=== PATIENT | male | born 1950 | race Caucasian/White ===

== ENCOUNTER 2021-12-31 13:02 | Observation (INO) | payer MEDICARE ==
[~2021-12-31] VITALS: Ht 165.1 cm; Wt 65.0 kg
[2021-12-31 16:51] LABS: CLARITY,URINE SLIGHTLY CLOUDY (Clear); COLOR,URINE YELLOW (Yellow); GLUCOSE, URINE NEGATIVE (Neg); KETONES,URINE 15 mg/dl (Neg); LEUKOCYTE ESTERASE ,URINE NEGATIVE (Neg); NITRITES, URINE NEGATIVE (Neg); OCCULT BLOOD,URINE NEGATIVE (Neg); PROTEIN,URINE NEGATIVE (Neg); UROBILINOGEN,URINE 0.2 E.U/dL (0.2-1.0)
[2021-12-31 16:56] LABS: UA COLLECTION TYPE NON-SPECIFIED
[2021-12-31 17:04] LABS: BACTERIA,URINE NONE SEEN /HPF (Neg); HYALINE CASTS 0-3 /LPF (NEGATIVE); MUCUS STRANDS MANY /LPF (Neg); RBC,URINE NONE SEEN /HPF (0-2); SQUAMOUS EPITHELIAL CELL,UR FEW /LPF (FEW); WBC,URINE NONE SEEN /HPF (0-4)
[2021-12-31 17:58] LABS: BASOPHILS % (AUTO) 0.9 % (0-1); EOSINOPHILS % (AUTO) 0 % (0-6); HEMATOCRIT 43.3 % (42.0-52.0); HEMOGLOBIN 14.5 g/dl (14.0-17.9); LYMPHOCYTES % (AUTO) 28.2 % (21-51); MEAN CORPUSCULAR HEMOGLOBIN 32.1 PG (27.0-31.0); MEAN CORPUSCULAR HGB CONC 33.4 g/dL (33.0-36.5); MEAN CORPUSCULAR VOLUME 96.1 FL (78-98); MEAN PLATELET VOLUME 10.8 FL (7.4-10.4); MONOCYTES # (AUTO) 0.2 X10'3 (0-0.9); MONOCYTES % (AUTO) 6.5 % (2-12); NEUTROPHILS # (AUTO) 2.3 X10'3 (1.8-7.7); NEUTROPHILS % (AUTO) 64.4 % (42-75); PLATELET COUNT 255 X10'3 (140-440); RED BLOOD COUNT 4.51 X10'6 (4.70-6.10); RED CELL DISTRIBUTION WIDTH 12.8 % (11.5-14.5); WHITE BLOOD COUNT 3.6 X10'3 (4.5-11.0)
[2021-12-31 18:08] LABS: ALANINE AMINOTRANSFERASE 37 U/L (12-78); ALBUMIN 3.9 G/DL (3.4-5.0); ALKALINE PHOSPHATASE 99 IU/L (46-116); ANION GAP 10 (8-16); ASPARTATE AMINO TRANSFERASE 13 U/L (10-37); BILIRUBIN,TOTAL 0.9 MG/DL (0.1-1.0); BLOOD UREA NITROGEN 19 MG/DL (7-18); BUN/CREATININE RATIO 19.4 (5.4-32.0); CALCIUM 9.3 MG/DL (8.5-10.1); CHLORIDE 101 MMOL/L (99-107); CREATININE 0.98 MG/DL (0.60-1.10); GLUCOSE 109 MG/DL (70-104); POTASSIUM 3.9 MMOL/L (3.5-5.1); SODIUM 142 MMOL/L (135-145); TOTAL CARBON DIOXIDE 30.7 MMOL/L (24-32); eGFR 76 ML/MIN
[2021-12-31 18:51] LABS: ANISOCYTOSIS FEW; PLATELET ESTIMATE NORMAL
[2021-12-31 18:52] LABS: LARGE PLATELETS MODERATE
[2021-12-31] MEDS ORDERED: iohexol 350MG/ML 100ml bottle IV ONE (19:26)
[2021-12-31] MEDS ORDERED: acetaminophen 325mg tablet PO PRN (20:55)
[2021-12-31] MEDS ORDERED: magnesium hydroxide 30ml (MOM) UD suspension PO PRN (20:55)
[2021-12-31] MEDS ORDERED: mag hydrox/Alum hydrox/simeth 30ml oral suspension PO PRN (20:55)
[2021-12-31] MEDS ORDERED: aspirin 325mg tablet, delayed-release (Ecotrin) PO ONE (20:55)
[2021-12-31] MEDS ORDERED: ondansetron/PF 4mg/2ml inj IV PRN (20:55)
[2021-12-31 21:08] LABS: APTT 26 SECONDS (22-32)
--- NOTE | 2021-12-31 23:20 | NUR ---
Received report from YESSICA Duffy. Awaiting patient arrival to the floor.
[2021-12-31 23:50] VITALS: BP 115/83
--- NOTE | 2021-12-31 23:50 | NUR ---
Patient arrived to the floor via wheelchair accompanied by EMT. Placed in [id number]. Patient awake and alert on room air, in no apparent distress. Call light and items of frequent use.
[2022-01-01 02:00] VITALS: BP 121/66
[2022-01-01 06:00] VITALS: BP 133/76
--- NOTE | 2022-01-01 06:23 | NUR ---
Problems reprioritized. Patient report given, questions answered & plan of care reviewed with YESSICA Plummer.
[2022-01-01] MEDS ORDERED: docusate sod 100mg capsule PO SCH (08:00)
[2022-01-01] MEDS ORDERED: aspirin 325mg tablet, delayed-release (Ecotrin) PO SCH (08:00)
[2022-01-01] MEDS ORDERED: PERFLUTREN PROTEIN-A MICROSPHR (Optison) 0.22 MG/ML 3ML VIAL IV ONE (10:30)
[2022-01-01 11:00] VITALS: BP 138/75
[2022-01-01] MEDS ORDERED: meclizine 12.5mg tablet PO PRN (11:00)
--- NOTE | 2022-01-01 11:05 | NUR ---
Contacted MRI- not available no answer. Screening form has been faxed.
[2022-01-01 11:10] LABS: BASOPHILS # (AUTO) 0.1 X10'3 (0-0.2); BASOPHILS % (AUTO) 1.3 % (0-1); EOSINOPHILS # (AUTO) 0.1 X10'3 (0-0.9); EOSINOPHILS % (AUTO) 1.3 % (0-6); HEMATOCRIT 37.9 % (42.0-52.0); HEMOGLOBIN 13.2 g/dl (14.0-17.9); LYMPHOCYTES % (AUTO) 43.9 % (21-51); MEAN CORPUSCULAR HEMOGLOBIN 32.7 PG (27.0-31.0); MEAN CORPUSCULAR HGB CONC 34.9 g/dL (33.0-36.5); MEAN CORPUSCULAR VOLUME 93.7 FL (78-98); MEAN PLATELET VOLUME 10.3 FL (7.4-10.4); MONOCYTES # (AUTO) 0.5 X10'3 (0-0.9); MONOCYTES % (AUTO) 10.9 % (2-12); NEUTROPHILS % (AUTO) 42.6 % (42-75); PLATELET COUNT 224 X10'3 (140-440); RED BLOOD COUNT 4.05 X10'6 (4.70-6.10); RED CELL DISTRIBUTION WIDTH 12.7 % (11.5-14.5); WHITE BLOOD COUNT 4.6 X10'3 (4.5-11.0)
[2022-01-01 11:39] LABS: ALANINE AMINOTRANSFERASE 29 U/L (12-78); ALBUMIN 3.2 G/DL (3.4-5.0); ALBUMIN/GLOBULIN RATIO 0.9 (1.1-1.5); ALKALINE PHOSPHATASE 84 IU/L (46-116); ANION GAP 9 (8-16); ASPARTATE AMINO TRANSFERASE 10 U/L (10-37); BILIRUBIN,TOTAL 0.7 MG/DL (0.1-1.0); BLOOD UREA NITROGEN 20 MG/DL (7-18); BUN/CREATININE RATIO 21.3 (5.4-32.0); CALCIUM 8.8 MG/DL (8.5-10.1); CHLORIDE 103 MMOL/L (99-107); CHOL/HDL RATIO 2.9 (0.00-4.99); CHOLESTEROL 170 MG/DL (0-200); CREATININE 0.94 MG/DL (0.60-1.10); GLUCOSE 97 MG/DL (70-104); HDL CHOLESTEROL 59 MG/DL (35-60); LDL CHOLESTEROL 89 MG/DL (50-100); POTASSIUM 3.9 MMOL/L (3.5-5.1); SODIUM 139 MMOL/L (135-145); TOTAL CARBON DIOXIDE 27.3 MMOL/L (24-32); TOTAL PROTEIN 6.9 G/DL (6.4-8.2); TRIGLYCERIDES 86 MG/DL (20-135); eGFR 79 ML/MIN
[2022-01-01 12:48] VITALS: BP_SYST 139; BP_SYST 155; BP_DIAS 65; BP_DIAS 83
[2022-01-01 12:49] VITALS: BP 139/69
[2022-01-01 15:00] VITALS: BP 135/77
[2022-01-01] MEDS ORDERED: TADA10TA PO (15:32)
[2022-01-01 15:45] LABS: MAGNESIUM 2.1 MG/DL (1.5-2.4); PHOSPHORUS 3.1 MG/DL (2.3-4.5)
[2022-01-01] MEDS ORDERED: ASPI-1071 PO (16:17)
--- NOTE | 2022-01-01 17:20 | NUR ---
DISCHARGE NOTE: Discussed discharge paperwork with pt. He is aware to f/u with PCP for f/u MRI. He is aware to f/u w/ automobile rental representative if blurry vision occurs again. Discussed OTC ASA prescription and possible ASE. PIV removed, cannula intact, no s/sx bleeding noted. Pt. removed tele monitor and it was returned.
== END 2022-01-01 17:22 | disposition home or self-care (01) ==
LOC: ER 13:03 → ED HOLD 20:55 → PCU 3S 23:22
PROVIDERS: ADMIT Internal Medicine; ATTEND Family Medicine
DX: R55 Syncope and collapse (principal); Z20.822 Contact with and (suspected) exposure to COVID-19; R53.83 Other fatigue; H53.8 Other visual disturbances; R26.89 Other abnormalities of gait and mobility; R00.2 Palpitations; J32.0 Chronic maxillary sinusitis; I49.3 Ventricular premature depolarization; Z86.73 Personal history of transient ischemic attack (TIA), and cerebral infarction without residual deficits; Z72.89 Other problems related to lifestyle; Z79.82 Long term (current) use of aspirin; Z79.899 Other long term (current) drug therapy
CPT/HCPCS: 36415; 70450; 70496; 70498; 70544; 70547; 70551; 71045; 80053; 80061; 81001; 82948; 83735; 84100; 84443; 84484; 85008; 85025; 85610; 85730; 87635; 93005; 93306; 97116; 97161; 97530; 99285; C9803; G0378; J3490; Q9967